=== PATIENT | male | born 1970 | race Caucasian/White ===

== ENCOUNTER 2020-05-30 19:10 | Observation (INO) | payer BC, SELFPAY ==
--- NOTE | ~2020-05-30 | XR_ITS ---
XR chest 2V DATE: 05/30/2020 19:48 INDICATION: Chest pressure. Shortness of breath. History of microinfarction, coronary disease. ESOPHA GEAL reflux disease. TECHNIQUE: PA and lateral views COMPARISON: 09/24/2015 2 view chest FINDINGS: Normal heart size. No hilar or mediastinal enlargement. No pulmonary infiltrate or consolidation, pleural effusion or pulmonary vascular congestion or pneumo thorax. IMPRESSION: No active cardiopulmonary disease Reviewed, dictated and finalized at location A. UMER LOAN PROCESSOR
--- NOTE | 2020-05-30 19:14 | ECG_ITS ---
Measurements Intervals [place] Rate: 88 P: 22 [place]: 162 QRS: -38 QRSD: 156 T: 98 QT: 394 QTc: 478 Interpretive Statements SINUS RHYTHM LEFT AXIS DEVIATION LEFT BUNDLE BRANCH BLOCK BASELINE ARTIFACT- I, II, III ABNORMAL ECG Electronically Signed On 05-30-2020 19:29:02 SCHOOL TRANSPORTATION SUPERVISOR by Josue Horan D.O.
[2020-05-30 19:17] VITALS: BP 161/93; PULSE 82; RESP 16; TEMP 35.7; O2SAT 98
[2020-05-30 19:34] LABS: Basophils Absolute Auto 0.1 K/mm3 (0.0-0.1); Basophils Percent Auto 0.9 % (0.2-1.2); Eosinophils Absolute Auto 0.3 K/mm3 (0-0.3); Eosinophils Percent Auto 2.8 % (0-4.4); Hematocrit 43.3 % (42.0-52.0); Hemoglobin 14.7 g/dL (14.0-18.0); Immature Granulocyte Absolute 0.07 K/mm3 (0.00-0.031); Immature Granulocyte Percent A 0.8 % (0-0.5); Lymphocytes Absolute Auto 2.24 K/mm3 (0.9-3.2); Lymphocytes Percent Auto 25.3 % (18.3-44.2); Mean Corpuscular HGB Conc 33.9 g/dl (32-36); Mean Corpuscular Volume 94.1 fl (80-100); Mean Platelet Volume 9.3 fl (7.4-10.4); Monocytes Absolute Auto 0.8 K/mm3 (0.1-0.6); Monocytes Percent Auto 8.6 % (2.6-8.5); Neutrophils Absolute Auto 5.5 K/mm3 (1.3-6.7); Neutrophils Percent Auto 61.6 % (45.5-73.1); Platelet Count Result 202 k/mm3 (150-375); Red Cell Distribution Width 13.2 % (11.5-14.5); White Blood Count 8.9 K/mm3 (4.5-10.0)
--- NOTE | 2020-05-30 19:39 | ED.GENADULT ---
HPI - General Adult General Chief complaint: Chest Pain Stated complaint: Chest pain Time Seen by Provider: 05/30/20 19:17 Source: patient History of Present Illness HPI narrative: Patient is 50 y/o male complaining chest pain starting 1 hour ago. The pain is located across his chest. He describe his pain as a pressure and rates it as 7/10 when it first started. He took Nitro, which did not help initially, but helped some eventually. He states that his pain radiated to his back and both arms. He had some SOB. He has a chronic cough. Currently he rates his pain as 5/10. He states that he takes Aspirin daily and he took his usual dose early this morning. Related Data Home Medications Medication Instructions Recorded Confirmed aspirin 81 mg tablet,delayed 81 mg PO DAILY 06/02/19 release atorvastatin 40 mg tablet 40 mg PO DAILY 06/02/19 carvedilol 6.25 mg tablet 6.25 mg PO BID tablet 06/02/19 clopidogrel 75 mg tablet 75 mg PO DAILY 06/02/19 loratadine 10 mg tablet 10 mg PO DAILY 06/02/19 multivitamin 1 tablet PO DAILY 06/02/19 nitroglycerin 0.4 mg sublingual 0.4 mg SUBLINGUAL Q5M PRN 06/02/19 tablet ramipril 5 mg capsule 5 mg PO DAILY 06/02/19 Allergies Allergy/AdvReac Type Severity Reaction Status Date / Time No Known Allergies Allergy Verified 05/30/20 19:11 Review of Systems Constitutional: Constitutional: Denies chills, Denies fever(s), Denies headache(s) and Denies weakness Eyes: Eyes: Denies blurry vision ENT: Denies headache(s) and Denies neck pain Cardiovascular: Cardiovascular: Reports chest pain and Reports dyspnea Respiratory: Respiratory: Denies cough and Reports dyspnea Gastrointestinal: Gastrointestinal: Denies abdominal pain, Denies diarrhea, Denies nausea and Denies vomiting Genitourinary: Genitourinary: Denies hematuria and Denies dysuria Musculoskeletal: Musculoskeletal: Denies back pain and Denies neck pain Neurologic: Denies headache(s) and Denies weakness [facility] Past Medical History Medical History Bilateral shoulder pain CAD (coronary artery disease) Essential (primary) hypertension GERD (gastroesophageal reflux disease) Hyperlipidemia IBS (irritable bowel syndrome) Myocardial infarction (~2015) Normal colonoscopy (~09/19/18) Rheumatoid arthritis Exam Const: General: no acute distress and well developed Orientation/consciousness: oriented to person, oriented to place, oriented to time and patient oriented x3 HENMT: Head: normocephalic Ears: external ears normal General nose exam: Normal external nose present Eyes: General: appearance normal, both eyes and all related structures Conjunctivae: conjunctivae normal Neck: Neck: normal visual inspection and full ROM Chest: Chest palpation & inspection: normal inspection of the chest and no tenderness Resp: Effort & Inspection: normal respiratory effort Auscultation: clear to auscultation bilaterally Cardio: Rate: regular rate Rhythm: regular rhythm GI: GI Palp: No abdominal tenderness and Yes Soft to palpation Skin: General skin exam: normal color and turgor normal Neuro: General: oriented to person, oriented to place, oriented to time and patient oriented x3 Cognition (Neuro): normal cognition Extrem: General: normal to inspection, full ROM and no pedal edema Psych: Appearance: grossly normal Mental Status: mental status grossly normal Affect: normal affect Course Reevaluation(s) Reevaluation #1: Rechecked patient. He feels better and rates chest pain as 1-2/10. Date: 05/30/20 Time: 22:08 Consultations Consultation #1: Discussed with Dr. Jacob, who agrees to admit. Date: 05/30/20 Time: 22:20 Vital Signs Vital signs: Vital Signs Temperature 35.7 C L 05/30/20 19:17 Pulse Rate 82 05/30/20 19:17 Respiratory Rate 16 05/30/20 19:17 Blood Pressure 161/93 H 05/30/20 19:17 Pulse Oximetry 98 05/30/20 19:17 Temperature 35.7 C L 0
[2020-05-30 20:17] LABS: INR 0.9; Partial Thromboplastin Time 27.7 SECONDS (22.3-36.8); Prothrombin Time 12.7 Seconds (11.1-14.7)
[2020-05-30 20:25] LABS: Anion Gap 5 mmol/L (8-16); Blood Urea Nitrogen 15 mg/dL (9-20); Calcium 9.1 mg/dL (8.4-10.2); Carbon Dioxide 31 mmol/L (22-30); Chloride 101 mmol/L (98-107); D Dimer 0.27 ug/mL (<0.48); Estimated Glomerular Filt Rate > 60; Glucose 103 mg/dL (75-110); Potassium 3.8 mmol/L (3.4-5.0); Sodium 137 mmol/L (137-145)
[2020-05-30 20:37] LABS: Troponin I < 0.012 ng/mL (0.000-0.034)
[2020-05-30 22:42] VITALS: BP 127/80; PULSE 71; PULSE 74; RESP 16; O2SAT 98
[2020-05-30 23:00] VITALS: BP 133/81; PULSE 61; RESP 18; O2SAT 98
[2020-05-30] MEDS: ASPIRIN 81 MG CHEWABLE TABLET 324 MG (23:01)
[2020-05-30 23:06] LABS: Troponin I < 0.012 ng/mL (0.000-0.034)
[2020-05-30 23:30] VITALS: BP 133/78; PULSE 54; RESP 17; O2SAT 98
[2020-05-31] VITALS (10 sets, daily range): BP systolic 131–148; BP diastolic 75–93; PULSE 59–92; RESP 12–20; TEMP 36–36.3; O2SAT 95–99; BMI 30.2
--- NOTE | 2020-05-31 00:31 | ADMGEN ---
This patient, Christ Dee II, was admitted to IMU Room 206-01 at 0030. Patient/family oriented to hospital policies and general routines including ID bracelet, bed and alarms, visiting hours, pain management, procedures, bathroom and other care routines, personal items, smoking policy, room service/diet, and visiting hours. Information on how to activate the Rapid Response Team has been discussed. Patient/Family are encouraged to report perceived risks to care and to ask questions if they do not understand what they are told or what they should do.
[2020-05-31 01:49] LABS: Troponin I < 0.012 ng/mL (0.000-0.034)
--- NOTE | 2020-05-31 10:30 | PM.CNCAR ---
History of Present Illness History of Present Illness Consult date/time: 05/31/20 10:30 Date of consult: 05/31/2020 Reason for consult: Requesting physician: Chief complaint: HPI: 50-year-old male with CAD, history of non ST elevation [place] status post PCI/stenting of RPL branch using a 2.75 x 18 mm everolimus eluting stent on 09/26/2015; chronic left bundle branch block, hypertension, rheumatoid arthritis Patient presented to [facility] on 05/30/2020 complaints of chest pain. EKG on my personal in interpretation showed sinus rhythm, chronic left bundle branch block. Serial troponins are negative. Chest x-ray is unremarkable. Reason For Visit: Chest pain Review of Systems Review of Systems: Narrative: General: Negative for fever, chills, fatigue Psychological: Negative for anxiety, depression Ophthalmic: negative for loss of vision ENT: Negative for epistaxis, headaches Allergy and immunology: Negative for hives, nasal congestion Hematologic and lymphatic: Negative for overt bleeding problems Endocrine: Negative for hot flashes, palpitations Respiratory: Negative for cough, hemoptysis Cardiovascular: Negative for chest pain, shortness of breath, leg swelling, palpitations, dizziness, syncope Gastrointestinal: Negative for abdominal pain, nausea, vomiting, hematochezia Musculoskeletal: Negative for myalgia, joint pains Neurological: Negative for weakness Dermatological: Negative for rash, skin discoloration PMFSH Past Medical History Medical History Bilateral shoulder pain CAD (coronary artery disease) Essential (primary) hypertension GERD (gastroesophageal reflux disease) Hyperlipidemia IBS (irritable bowel syndrome) Myocardial infarction (~2015) Normal colonoscopy (~09/19/18) Rheumatoid arthritis Family History Family History Mother Lupus Heart disease Father Heart disease Sibling Lupus Social History Social History Smoking status: Former smoker Additional smoking assessment comments: quit 30 years ago Alcohol intake: current Substance use: never Substance use type: does not use Gender identity (if verbalized by the patient): Male Spiritual care concerns: No Meds Home Medications and Allergies Home Medications Medication Instructions Recorded Confirmed Type famotidine 20 mg tablet 20 mg PO DAILY #90 tablet 04/15/19 05/31/20 Rx aspirin 81 mg tablet,delayed 81 mg PO DAILY 06/02/19 05/31/20 History release atorvastatin 40 mg tablet 40 mg PO DAILY 06/02/19 05/31/20 History carvedilol 6.25 mg tablet 6.25 mg PO BID tablet 06/02/19 05/31/20 History loratadine 10 mg tablet 10 mg PO DAILY 06/02/19 05/31/20 History methotrexate sodium 2.5 mg tablet 10 mg PO WEEKLY #48 tablet 06/02/19 05/31/20 Rx multivitamin 1 tablet PO DAILY 06/02/19 05/31/20 History nitroglycerin 0.4 mg sublingual 0.4 mg SUBLINGUAL Q5M PRN 06/02/19 05/31/20 History tablet ramipril 5 mg capsule 5 mg PO DAILY 06/02/19 05/31/20 History tramadol 50 mg tablet 50 mg PO Q12H PRN #30 tablet 06/23/19 05/31/20 Rx hydroxychloroquine 200 mg PO DAILY 05/31/20 05/31/20 History Allergies Allergy/AdvReac Type Severity Reaction Status Date / Time No Known Allergies Allergy Verified 05/30/20 19:11 Vital Signs Vital Signs - 24 hr 05/30/20 19:17 05/30/20 22:42 05/30/20 23:00 Temperature 35.7 C L Pulse Rate 82 74 61 Respiratory Rate 16 16 18 Blood Pressure 161/93 H 127/80 133/81 Pulse Oximetry 98 98 98 05/30/20 23:30 05/31/20 00:00 05/31/20 00:40 Temperature 36.1 C L Pulse Rate 54 L 59 L 62 Respiratory Rate 17 15 20 Blood Pressure 133/78 131/83 143/93 H Pulse Oximetry 98 97 99 05/31/20 00:45 05/31/20 01:04 05/31/20 02:00 Temperature 36.1 C L Pulse Rate 62 62 59 L Respiratory Rate 20 20 Blood Pressure 143/93 H Pulse Oximetry 99 99 01
--- NOTE | 2020-05-31 10:58 | PM.IMHP ---
H&P: HPI History of Present Illness Date/Time: 05/31/20 10:58 Date of service: 05/31/2020 Chief complaint: Chest pain HPI: 50-year-old male with CAD, history of non ST elevation CT status post PCI/stenting of RPL branch using a 2.75 x 18 mm everolimus eluting stent on 09/26/2015; chronic left bundle branch block, hypertension, rheumatoid arthritis. Patient follows up with Dr. Contreras for cardiovascular care. Patient presented [facility] on 05/30[facility]2020 complaints of chest pain. His symptoms started yesterday afternoon. He described his chest pain as pressure-like sensation, nonradiating. Patient states that he took 1 nitroglycerin at home without significant improvement in the chest discomfort. He had modest improvement in the chest discomfort after 2nd sublingual nitroglycerin. His symptoms lasted for about 1 hour. He had associated palpitations, mild dizziness and diaphoresis; denied shortness of breath, syncope. At baseline, patient states that he does get occasional chest discomfort and uses sublingual nitroglycerin. He states that he is physically active, and has been participating and resistance training. He attributed some of his symptoms of chest discomfort to resistance training. Patient also has rheumatoid arthritis, and usually has aches and pains. Since admission to the hospital, patient has not had any recurrent chest discomfort. He is eager to go home. EKG on my personal in interpretation showed sinus rhythm, chronic left bundle branch block. Serial troponins are negative. Chest x-ray is unremarkable. Review of patient's outpatient medical records show that he had pharmacological stress test on 08/21/2018 which showed no ischemia and normal LVEF. Chief Complaint: Chest pain Narrative: Christ Dee II is a 50 year old male Review of Systems Review of Systems: Narrative: General: Negative for fever, chills, fatigue Psychological: Negative for anxiety, depression Ophthalmic: negative for loss of vision ENT: Negative for epistaxis, headaches Allergy and immunology: Negative for hives, nasal congestion Hematologic and lymphatic: Negative for overt bleeding problems Endocrine: Negative for hot flashes, palpitations Respiratory: Negative for cough, hemoptysis Cardiovascular: Positive for chest pain, dizziness; no syncope, no shortness of breath Gastrointestinal: Negative for abdominal pain, nausea, vomiting, hematochezia Musculoskeletal: Positive for joint pains Neurological: Negative for weakness Dermatological: Negative for rash, skin discoloration PMFSH Past Medical History Medical History Bilateral shoulder pain CAD (coronary artery disease) Essential (primary) hypertension GERD (gastroesophageal reflux disease) Hyperlipidemia IBS (irritable bowel syndrome) Myocardial infarction (~2015) Normal colonoscopy (~09/19/18) Rheumatoid arthritis Family History Family History Mother Lupus Heart disease Father Heart disease Sibling Lupus Social History Social History Smoking status: Former smoker Additional smoking assessment comments: quit 30 years ago Alcohol intake: current Substance use: never Substance use type: does not use Gender identity (if verbalized by the patient): Male Spiritual care concerns: No Meds Home Medications and Allergies Home Medications Medication Instructions Recorded Confirmed Type famotidine 20 mg tablet 20 mg PO DAILY #90 tablet 04/15/19 05/31/20 Rx aspirin 81 mg tablet,delayed 81 mg PO DAILY 06/02/19 05/31/20 History release atorvastatin 40 mg tablet 40 mg PO DAILY 06/02/19 05/31/20 History carvedilol 6.25 mg tablet 6.25 mg PO BID tablet 06/02/19 05/31/20 History loratadine 10 mg tablet 10 mg PO DAILY 06/02/19 05/31/20 History methotrexate sodium 2.5 mg tablet 10 mg PO WEEK
[2020-05-31] MEDS: ASPIRIN 81 MG CHEWABLE TABLET PO (11:46)
== END 2020-05-31 13:06 | disposition home or self-care (01) ==
LOC: ANHED 22:21 → ANHIMU 05-31 11:03
PROVIDERS: Admitting Provider Internal Medicine Cardiovascular Disease; Emergency Provider Emergency Medicine; PCP Family Medicine; Visit Provider Internal Medicine Cardiovascular Disease
DX: R07.9 Chest pain, unspecified (principal); I25.10 Atherosclerotic heart disease of native coronary artery without angina pectoris; I10 Essential (primary) hypertension; I25.2 Old myocardial infarction; K21.9 Gastro-esophageal reflux disease without esophagitis; E78.5 Hyperlipidemia, unspecified; M06.9 Rheumatoid arthritis, unspecified; Z95.5 Presence of coronary angioplasty implant and graft
CPT/HCPCS: 36415; 71046; 80048; 84484; 85025; 85380; 85610; 85730; 93005; 99285; A9270; G0378

== ENCOUNTER → 2020-07-28 11:04 | Outpatient (CLI) | payer BC, SELFPAY ==
--- NOTE | ~2020-07-28 | US_ITS ---
US scrotum doppler INDICATION: Left testicular pain TECHNIQUE: Testicular sonogram utilizing grayscale and color Doppler FINDINGS: The testes are normal in size and appearance. No focal lesions are seen. The right testes measures 4.2 x 2.8 x 3.1 cm centimeters, and the left testis measures 4.7 x 2.8 x 2.5 cm cm. There is normal vascular flow to both testes. The right and left epididymides appear normal. There are bilateral hydroceles, moderate on the left and small on the right. IMPRESSION: 1. Bilateral hydroceles Reviewed, dictated and finalized at location A. IMPRESSION: 1. Bilateral hydroceles
== END ==
PROVIDERS: PCP Nurse Practitioner Family; Visit Provider Nurse Practitioner Family
DX: N50.812 Left testicular pain (principal); N43.3 Hydrocele, unspecified
CPT/HCPCS: 76870; 93976

== ENCOUNTER → 2021-04-24 06:57 | Outpatient (CLI) | payer BC, SELFPAY ==
--- NOTE | ~2021-04-24 | XR_ITS ---
EXAMINATION: XR shoulder RT min 2V DATE: 04/24/2021 07:10 INDICATION: Right shoulder pain. TECHNIQUE: 4 views of right shoulder were obtained. COMPARISON: None. FINDINGS: Bone alignment is normal. No fracture. There is mild osteoarthritis of glenohumeral joint a nd moderate osteoarthritis of acromioclavicular joint. IMPRESSION: 1. Polyarticular osteoarthritis. Reviewed, dictated and finalized at location A. OPERATOR HEAD
== END ==
PROVIDERS: PCP Family Medicine; Visit Provider Internal Medicine
DX: M19.011 Primary osteoarthritis, right shoulder (principal)
CPT/HCPCS: 73030

== ENCOUNTER → 2021-07-21 04:58 | Outpatient (CLI) | payer BC, SELFPAY ==
[2021-07-21 12:34] LABS: SARS-CoV-2 RNA PCR Positive
== END ==
PROVIDERS: PCP Family Medicine; Visit Provider Family Medicine
DX: U07.1 COVID-19 (principal)
CPT/HCPCS: C9803; U0003; U0005

== ENCOUNTER 2022-02-01 14:35 | Outpatient (CLI) | payer BC, SELFPAY ==
--- NOTE | ~2022-02-01 | MR_ITS ---
EXAMINATION: MR elbow LT wo con DATE: 02/01/2022 15:42 INDICATION: Left elbow pain TECHNIQUE: Magnetic resonance imaging (MRI) of the left elbow was performed without intravenous contr ast. Sequences included coronal, axial, and sagittal PD-weighted FS FSE, coronal, axial, and sagittal PD-weighted FSE and axial T2-weighted FS FSE. COMPARISON: None FINDINGS: Osseous/other: Normal alignment. Normal marrow signal with no marrow edema, fracture, osteochondral lesion or abnor mal marrow replacing process. Mild partial-thickness cartilage loss with smooth chondral surface kelly g the radial head. Tendons: Triceps, biceps brachii and brachialis tendons are normal. Common flexor tendon wad is normal. Mild tendinopathy with small partial thickness tear at the lateral epicondylar origin of the common extens or tendon wad. Ligaments: The medial and lateral collateral ligament complexes are normal. Cubital tunnel: Cubital tunnel is unremarkable with normal signal and caliber of the ulnar nerve. Fluid: Physiologic amount of fluid the elbow joint. IMPRESSION: 1. Mild tendinopathy with small partial-thickness tear at the lateral epicondylar origin of the commo n extensor tendon wad. 2. Mild osteoarthritis at the radiocapitellar articulation. Reviewed, dictated and finalized at location A. IMPRESSION: 1. Mild tendinopathy with small partial-thickness tear at the lateral epicondyl ar origin of the common extensor tendon wad. 2. Mild osteoarthritis at the radiocapitellar articulation.
== END 2022-02-01 14:36 | disposition home or self-care (01) ==
PROVIDERS: PCP Family Medicine; Visit Provider Nurse Practitioner
DX: M19.022 Primary osteoarthritis, left elbow (principal)
CPT/HCPCS: 73221

== ENCOUNTER 2023-04-24 03:12 | Day surgery (SDC) | payer BC, SELFPAY ==
[2023-04-23 09:45] VITALS: BMI 27.6
--- NOTE | 2023-04-23 09:49 | PC.NURSE ---
Report to the Outpatient Waiting Room, entrance under the green pavilion located off [facility], at time 0830 on date 04/24/23. Planned Procedure Time: 1030. Time changes happen often and if your time is changed the preop area will call you the afternoon before. - You and your visitor will be asked to self-screen and do not enter if you have any COVID symptoms. - A mask is optional within the hospital at this time. Patients may have clear liquids (water, carbonated beverages, clear teas, apple juice) until 3 hours prior to surgery with a maximum of 20 ounces. - No food from midnight until time of surgery Take the following medications with a SIP of water the morning of surgery: CARVEDILOL, TYLENOL, TRAMADOL IF NEEDED DO NOT STOP ANY OF YOUR OTHER PRESCRIPTION MEDICATIONS PRIOR TO SURGERY ?EXCEPT THE FOLLOWING Medications to discontinue per physician: VITAMINS Date to take last dose: NO MORE UNTIL AFTER SURGERY PT HAS STOPPED ASPIRIN, METHOTREXATE, AND PREDNISONE INSTRUCTED BY FOR THIS PROCEDURE. Please no make-up, nail sami, hairspray, perfume, deodorant, or body powder the day of surgery. No jewelry (including any body piercings) or valuables the day of surgery, leave them at home. Please take a shower or bath the night before, or the morning of, surgery with an antibacterial soap. Wear comfortable, loose fitting clothing. - Jewelry must be removed prior to entering the operating room. Rings and piercings that are not removed may be cut off. - The hospital will not accept responsibility for valuables. - Please leave all valuables, including medications, at home the day of surgery. If you are going home after surgery, a licensed ross carrier driver must drive you home. - NO public transportation without another adult if you receive anesthesia. - We recommend that an adult stay with you for 24 hours following discharge. - We also recommend that you do not drive, make important decision, drink alcoholic beverages, or take any drugs that were not prescribed by your health care provider for at least 24 hours after your discharge time. Follow any additional instructions given to you from your surgeon. If you or anyone in your household have experienced Covid symptoms in the past week, please notify your surgeon or the nurse liaison at the phone number below for possible testing. Telephone instructions given to PT - SIOMARA FLORES and asked if any additional questions and then verbalized understanding. Patient advised to call surgeon office or pre surgery nurse liaison [phone] if any additional questions.
[2023-04-24] VITALS (10 sets, daily range): BP systolic 119–154; BP diastolic 70–87; PULSE 64–90; RESP 14–18; TEMP 36.6; O2SAT 93–100
--- NOTE | 2023-04-24 07:17 | WPDHPUPDATE1 ---
History and Physical Update Update Date/Time: 04/24/23 07:17 History and Physical has been reviewed, including an updated exam of the patient. There are NO changes in the patient's condition. Risks, benefits, and alternatives have been discussed and questions answered. Patient agrees to proceed with procedure.
[2023-04-24] MEDS: CELECOXIB 200 MG CAPSULE PO (08:51)
[2023-04-24] MEDS: ACETAMINOPHEN 500 MG TABLET 1000 MG PO (08:51)
--- NOTE | 2023-04-24 08:56 | ECG_ITS ---
Measurements Intervals [place] Rate: 60 P: 11 HI: 177 QRS: -33 QRSD: 156 T: 97 QT: 474 QTc: 477 Interpretive Statements SINUS RHYTHM LEFT AXIS DEVIATION LEFT BUNDLE BRANCH BLOCK ABNORMAL ECG COMPARED TO ECG 05/30/2020 19:17:09 NO SIGNIFICANT CHANGES Electronically Signed On 04-24-2023 15:52:10 MESSENGER OFFICE by Gregory Jacob M.D.
[2023-04-24] MEDS: LACTATED RINGERS 1,000 ML 30 ML IV CONT (09:00)
--- NOTE | 2023-04-24 09:35 | WPDANESEPPF ---
Anes - Initial Pre Proc Eval Procedure: Operation Date: 04/24/23 10:30 Proposed Procedures p Left Common Extensor Tendon Elbow Repair - Bryan Xie MD Date/Time: 04/24/23 09:35 Surgeon: Bryan Xie MD Pre Op Diagnosis: left elbow common partial extensor tendon tear Patient Data Age: 53 Gender: M Height: 1.73 m Weight: 85.9 kg Last Vital Signs Temp 36.6 C 04/24/23 09:15 Pulse 64 04/24/23 09:15 Resp 16 04/24/23 09:15 BP 128/83 04/24/23 09:15 Pulse Ox 100 04/24/23 09:15 O2 Del Method Room Air 04/24/23 09:15 Allergies Allergy/AdvReac Type Severity Reaction Status Date / Time No Known Allergies Allergy Verified 04/24/23 08:48 Home Medications Medication Instructions Recorded Confirmed Type aspirin 81 mg tablet,delayed 81 mg PO DAILY 06/02/19 04/23/23 History release (Adult Low Dose Aspirin) carvedilol 6.25 mg tablet 6.25 mg PO BID 06/02/19 04/23/23 History loratadine 10 mg tablet (Claritin) 10 mg PO DAILY 06/02/19 04/23/23 History multivitamin 1 tablet PO DAILY 06/02/19 04/23/23 History nitroglycerin 0.4 mg sublingual 0.4 mg sublingual Q5M PRN Pain 06/02/19 04/23/23 History tablet ramipril 5 mg capsule 5 mg PO DAILY 06/02/19 04/23/23 History tramadol 50 mg tablet 50 mg PO Q12H PRN pain #30 tabs 02/16/21 04/23/23 Rx hydroxychloroquine 200 mg tablet 200 mg PO DAILY #90 tabs 06/09/21 04/23/23 Rx ezetimibe 10 mg tablet 10 mg PO DAILY 03/20/22 04/23/23 History folic acid 1 mg tablet 1 mg PO DAILY 03/20/22 04/23/23 History montelukast 10 mg tablet 10 mg PO DAILY 03/20/22 04/23/23 History rosuvastatin 40 mg tablet 40 mg PO DAILY 03/20/22 04/23/23 History omeprazole 20 mg capsule,delayed 20 mg PO BID #60 caps 04/04/23 04/23/23 Rx release acetaminophen 500 mg tablet 500 mg PO BID 04/23/23 04/23/23 History methotrexate sodium 2.5 mg tablet 12.5 mg PO WEEKLY 04/23/23 04/23/23 History hydrocodone 5 mg-acetaminophen 325 1 tablet PO BID PRN pain #20 tabs 04/24/23 Rx mg tablet Patient hx anesthesia problems: none Family hx anesthesia problems: none Results Review: All pre-operative results and documents have been reviewed as part of the pre-operative evaluation. [facility] Past Medical History Medical History Bilateral shoulder pain CAD (coronary artery disease) CREST (calcinosis, Raynaud's phenomenon, esophageal dysfunction, sclerodactyly, telangiectasia) Essential (primary) hypertension GERD (gastroesophageal reflux disease) Hyperlipidemia IBS (irritable bowel syndrome) Left lateral epicondylitis Myocardial infarction (~2015) Normal colonoscopy (~09/19/18) NOEL (obstructive sleep apnea) Rheumatoid arthritis Surgical History Surgical History (Updated 04/24/23 @ 09:35 by Angel Tavarez MD) History of coronary artery stent placement Family History Family History Mother Lupus Heart disease Father Heart disease Sibling Lupus Mother Family history of lupus erythematosus Other Arthritis Cerebrovascular accident Diabetes mellitus HLD (hyperlipidemia) Social History Social History Smoking status: Never smoker Additional smoking assessment comments: quit 30 years ago Alcohol intake: never Substance use: never Substance use type: does not use Lack of Transportation: No Lack of Food: Never True Current Housing: I Have Housing Concerned About Future Housing: No Difficulty Paying Gas/Electric Bills: No Difficulty Paying for Meds: No Currently Unemployed: No Education: Bachelor's Degree Difficulty w/ Childcare or Family Care: No Living arrangements: with family Occupation/Education: occupation Gender identity (if verbalized by the patient): Male Sexual Orientation (if Verbalized by the Patient): Straight or Heterosexual Spiritual care concerns: No Agr
[2023-04-24] MEDS: ceFAZolin 2 GM/D5W 50 ML 2 GM/50 ML BAG IVPB (10:26)
[2023-04-24] MEDS: BUPIVACAINE/EPINEPHRINE 0.5% 50 ML VIAL 20 ML INFILTRATE (10:31)
--- NOTE | 2023-04-24 11:43 | W.PM.PROC2 ---
Procedure Note - Detailed Date of Procedure 04/24/23 Pre-op Diagnosis left elbow common partial extensor tendon tear Post-op Diagnosis Same Procedure Performed LEFT TENNIS ELBOW RELEASE WITH COMMON EXTENSOR TENDON REPAIR Surgeon Bryan Xie MD Anesthesia General Description of Procedure PATIENT WAS TAKEN TO THE OR AND INTUBATED. THE LEFT UPPER EXTREMITY WAS PREPPED AND DRAPED STERILE FROM THE FINGERS TO MID ARM. THE INCISION WAS MADE AT THE LATERAL EPICONDYLE DOWN TO THE SUB CUTANEOUS TISSUES THEN TO THE FASCIA. THE COMMON EXTENSOR TENDON WAS EXPOSED. THERE WAS A THIN AMOUNT OF TENDON WITH A NEAR COMPLETE TEAR AT THE ORIGIN SITE. THE TENDON WAS DEBRIDED DOWN TO BLEEDING BONE. THE TISSUE WAS EXCISED TO GOOD TENDON MATERIAL. 3 MITEC SUTURE ANCHORS WITH 0 SUTURE WERE INSERTED AT THE LATERAL EPICONDYLE THEN THE TENDON WAS ATTACHED BACK TO THE BONE. THE REPAIR WAS EXCELLENT. THE WOUND WAS WASHED. 0 VICRYL WAS USED TO APPROXIMATE THE FASCIA AND 3-0 WAS USED ON THE SUB CUTANEOUS TISSUES. 4-0 MONOCRYL WAS USED A SUB CUTICULAR STITCH AND DERMABOND WAS USED AN THE SKIN. STERILE DRESSING WAS APPLIED. PATIENT WAS EXTUBATED. Estimated Blood Loss 5 Complications No immediate complications Condition Stable Disposition PACU
[2023-04-24] MEDS: fentaNYL CITRATE INJ (*CRX) 100 MCG/2 ML VIAL 25 MCG IV PUSH ×2 (12:11→12:16)
== END 2023-04-24 13:35 | disposition home or self-care (01) ==
PROVIDERS: PCP Family Medicine; Visit Provider Orthopaedic Surgery
PROC: (CPT 24359; principal; 2023-04-24 10:30)
DX: S56.512A Strain of other extensor muscle, fascia and tendon at forearm level, left arm, initial encounter (principal); M77.12 Lateral epicondylitis, left elbow; V98.8XXA Other specified transport accidents, initial encounter; I25.10 Atherosclerotic heart disease of native coronary artery without angina pectoris; M34.1 CR(E)ST syndrome; I10 Essential (primary) hypertension; K21.9 Gastro-esophageal reflux disease without esophagitis; E78.5 Hyperlipidemia, unspecified; I25.2 Old myocardial infarction; M06.9 Rheumatoid arthritis, unspecified; G47.33 Obstructive sleep apnea (adult) (pediatric); Z95.5 Presence of coronary angioplasty implant and graft; Z79.82 Long term (current) use of aspirin; Z79.631 Long term (current) use of antimetabolite agent
CPT/HCPCS: 24359; 93005; A4565; A9270; C1713; J0690; J1100; J2250; J2405; J2704; J3010; J7120

== ENCOUNTER 2023-08-27 14:00 | Outpatient (RCR) | payer BC, SELFPAY ==
--- NOTE | 2023-07-16 14:47 | OTOPEVAL1 ---
Assessment and note entered by Harinder Orellana, BONNIE/Christina, CHT Evaluation Information Assessment Status Evaluation Diagnosis Left lateral epicondylitis Subjective Information s/p tennis elbow release and extensor tendon repair 04/24/23. He is right handed. He has been wearing a wrist immobilizer to help reduce left elbow strain. He works in IT. No pain at rest. Increased pain with lifting. He has been favoring the right hand since surgery. Assessment OT Clinical Summary Patient referred to OT follow left common extensor tendon repair 04/24/23. He presents with residual weakness, decreased flexibility, and pain with use. Skilled OT indicated to maximize functional left UE use through HEP instruction/progression, therapeutic exercise, manual therapy, and modalities. Plan of Care Interventions Therapeutic Exercise,Manual Therapy,Therapeutic Activities,Hot Pack/Cold Pack,Paraffin OT Services Indicated Yes Treatment Frequency and 1x/week for 6 visits Duration These treatments will address the objective and functional deficits as defined above. The patient will be advanced safely and appropriately in order for the patient to progress towards his/her prior level of function. Additional exercises will be introduced and as well as a comprehensive home exercise program upon discharge, if needed, ?to ensure carryover of functional gains achieved in the clinic. This treatment plan has been reviewed and agreement upon by the patient.
--- NOTE | 2023-07-16 14:47 | OPREHPOC ---
Outpatient Therapy Plan of Care This is a Multidisciplinary Plan of Care that may contain components documented by all disciplines (PT, OT, and ST.) OT Problem 1 OT Problem #1 Knowledge Deficit OT Goal 1 Goal 1. Patient to be independent with instructed materials. Target Visit 7 OT Problem 2 OT Problem #2 Pain OT Goal 1 Goal 1. Patient to report no pain in the left elbow during ADLs. Target Visit 7 OT Problem 3 OT Problem #3 Impaired Strength OT Goal 1 Goal 1. Patient to be able to complete left wrist strengthening in all planes with 3 lb. free weight x20 reps without pain. 2. 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 Target Visit 7
--- NOTE | 2023-07-31 15:17 | PCOTNOTE ---
The patient treatment was not able to be completed on Friday 07/28 due to Therapist being out of the building. Will plan to continue treatment per plan of care. Box Icer attempted to reschedule.
--- NOTE | 2023-08-27 14:41 | OTOPDC ---
Assessment and note entered by Harinder Orellana, OTR/Christina, YAJAIRAT OT D/C 08/27/23 Diagnosis Left lateral epicondylitis Subjective Information Patient is s/p tennis elbow release and extensor tendon repair 04/24/23. He is right handed. He has progressed to using 3 lb. weight for wrist strengthening with no pain. 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 He states his biggest limitation at this time is his right elbow not the left. Reports no functional limitations on the left at this time. Reported Pain Level Pain Score 0: Self Report Assessment OT Clinical Summary Patient referred to OT s/p left common extensor repair. He has done very well with therapy and progression of strengthening. He presents today with intact and functional ROM and strength of the left UE. No functional deficits at this time. Plan to D/C with patient independent with all materials. Plan of Care OT Services Indicated No
== END 2023-08-27 15:17 | disposition home or self-care (01) ==
LOC: ANHGOSHOT 14:00
PROVIDERS: PCP Family Medicine; Visit Provider Orthopaedic Surgery
DX: M77.12 Lateral epicondylitis, left elbow (principal)
CPT/HCPCS: 97018; 97110; 97140; 97165